=== PATIENT | female | born 1970 | race Caucasian/White ===

== ENCOUNTER 2022-05-28 08:40 | Emergency (ER) | payer MEDICAID ==
[~2022-05-28] VITALS: Ht 165.1 cm; Wt 78.0 kg
[2022-05-28] MEDS ORDERED: FLUORESCEIN SODIUM 1MG/STRIP LEFTEYE ONE (09:00)
[2022-05-28] MEDS ORDERED: TETRACAINE 0.5% OPHTH DROPS 4ML LEFTEYE ONE (09:00)
[2022-05-28] MEDS ORDERED: TRAMADOL 50MG TABLET PO ONE (10:45)
[2022-05-28] MEDS ORDERED: TOBR5DRO2 LEFTEYE (11:00)
[2022-05-28] MEDS ORDERED: TRAM50TA3 MT (11:00)
[2022-05-28 11:15] VITALS: BP 136/86
== END 2022-05-28 11:16 | disposition home or self-care (01) ==
LOC: ER 10:45
DX: H10.32 Unspecified acute conjunctivitis, left eye (principal); M79.7 Fibromyalgia; I10 Essential (primary) hypertension; Z98.890 Other specified postprocedural states
CPT/HCPCS: 99283

== ENCOUNTER 2022-10-11 14:26 | Emergency (ER) | payer MEDICAID ==
[~2022-10-11] VITALS: Ht 165.1 cm; Wt 68.0 kg
[~2022-10-11 14:26] MED LIST: TOBR5DRO2 LEFTEYE; TRAM50TA3 MT
[2022-10-11 14:31] VITALS: BP 116/81
[2022-10-11] MEDS ORDERED: LORAZEPAM 0.5MG TABLET PO ONE (15:30)
[2022-10-11] MEDS ORDERED: LORAZEPAM 0.5MG TABLET PO NR (17:30)
== END 2022-10-11 18:29 | disposition home or self-care (01) ==
LOC: ER 14:26
DX: F41.9 Anxiety disorder, unspecified (principal); E05.90 Thyrotoxicosis, unspecified without thyrotoxic crisis or storm; M79.7 Fibromyalgia; Z88.8 Allergy status to other drugs, medicaments and biological substances; Z96.649 Presence of unspecified artificial hip joint
CPT/HCPCS: 99283